=== PATIENT | female | born 2000 | race Caucasian/White ===

== ENCOUNTER 2019-01-29 12:48 | Outpatient (CLI) | payer BC, SELFPAY ==
[2019-01-29 13:09] LABS: Abs Immature Grans 0.02 k/cumm (0.0-0.09); Absolute Basophil Count 0.04 k/cumm (0.0-0.2); Absolute Lymphocyte Count 2.24 k/cumm (1.2-3.4); Absolute Monocyte Count 0.47 k/cumm (0.11-0.7); Absolute Neutrophil Count 4.68 k/cumm (1.2-6.7); Basophils % 0.5; Eosinophils % 3.9; HGB 12.3 g/dL (12.0-15.5); Immature Grans % 0.3; Lymphocytes % 28.9; Mean Corp. HGB Concentration 33.2 g/dL (32.0-36.0); Mean Corpuscular Volume 90.2 fL (80-95); Mean Platelet Volume 10.4 fL (8.0-11.0); Monocytes % 6.1; Neutrophils % 60.3; Platelet Count 238 x1000/uL (130-400); White Blood Cell Count 7.75 k/cumm (4.4-10.8)
[2019-01-29 14:29] LABS: ALT 20 U/L (12-78); AST 11 U/L (15-37); Albumin 4.2 g/dL (3.4-5.0); Alkaline Phosphatase 68 U/L (46-116); Anion Gap 9.5 mmol/L (3-11); BUN 12 mg/dL (7-18); Bilirubin, Total 0.5 mg/dL (0.2-1.0); CO2 27.5 mmol/L (21.0-32.0); CREATININE 0.73 mg/dL (0.55-1.02); Calcium 9.1 mg/dL (8.5-10.1); Chloride 104 mmol/L (98-107); Glucose 83 mg/dL (70-100); Potassium 4.8 mmol/L (3.5-5.1); Sodium 141 mmol/L (136-145); TSH (W/Ref FT4) 1.66 uIU/mL (0.52-4.13); Total Protein 7.6 g/dL (6.4-8.2)
[2019-01-31 12:01] LABS: IgA 138 mg/dL (85-499); Interpretation SEE COMMENTS; Tissue Transglutaminase IgA <1.2 U/mL (<4.0)
== END 2019-01-29 13:08 ==
PROVIDERS: PCP Pediatrics; Visit Provider Pediatrics
DX: R53.83 Other fatigue (principal)
CPT/HCPCS: 36415; 80053; 82784; 83516; 84443; 85025

== ENCOUNTER 2020-05-03 05:44 | Outpatient (REF) | payer BC, SELFPAY ==
[2020-05-06 06:55] LABS: Patient Race White; SARS-CoV-2 RNA Undetected (Undetected); SARS-CoV-2 Specimen Source Nasal
== END 2020-05-03 06:04 ==
LOC: NCHCN 05:44
PROVIDERS: PCP Nurse Practitioner Family; Visit Provider Nurse Practitioner Family
DX: Z11.59 Encounter for screening for other viral diseases (principal)
CPT/HCPCS: U0003

== ENCOUNTER 2021-01-26 18:08 | Outpatient (REF) | payer BC, SELFPAY ==
[2021-01-26 18:35] LABS: Abs Immature Grans 0.02 10^3/uL (0.0-0.06); Absolute Basophil Count 0.04 10^3/uL (0.0-0.2); Absolute Eosinophil Count 0.31 10^3/uL (0.0-0.7); Absolute Lymphocyte Count 2.73 10^3/uL (1.2-3.4); Absolute Neutrophil Count 4.39 10^3/uL (1.2-6.7); Basophils % 0.5; Eosinophils % 3.8; HCT 36.3 % (36.0-46.0); HGB 12.2 g/dL (11.2-15.7); Immature Grans % 0.2; Lymphocytes % 33.7; MCH 30.3 pg (27.0-33.0); MCHC 33.6 % (32.0-36.0); MCV 90.3 fL (80-95); MPV 10.9 fL (8.0-11.0); Monocytes % 7.4; Neutrophils % 54.4; Nucleated RBC 0 %; Platelet Count 243 10^3/uL (130-400); RBC 4.02 10^6/uL (3.93-5.22); RDW 11.7 % (11.7-14.6); RDW-SD 38.9 fL; WBC 8.09 10^3/uL (4.4-10.8)
[2021-01-26 18:57] LABS: ALT 21 U/L (14-59); AST 16 U/L (15-37); Albumin 4.4 g/dL (3.4-5.0); Alkaline Phosphatase 64 U/L (46-116); Anion Gap 8.3 mmol/L (3-11); BUN 13 mg/dL (7-18); Bilirubin, Total 0.3 mg/dL (0.2-1.0); CO2 26.7 mmol/L (21.0-32.0); CREATININE 0.8 mg/dL (0.55-1.02); Calcium 9.5 mg/dL (8.5-10.1); Chloride 102 mmol/L (98-107); FREE T4 0.98 ng/dL (0.76-1.46); Glucose 85 mg/dL (74-106); Potassium 3.9 mmol/L (3.5-5.1); Sodium 137 mmol/L (136-145); TSH 2.17 uIU/mL (0.36-3.74); Total Protein 8.3 g/dL (6.4-8.2)
[2021-01-27 17:44] LABS: Thyroglobulin Antibody <15 U/mL (<=60); Thyroperoxidase Antibody <28 U/mL (<=60)
[2021-01-31 12:58] LABS: IgA 146 mg/dL (85-499); Interpretation (See Note); Tissue Transglutaminase IgA <1.2 U/mL (<4.0)
[2021-02-07 14:48] LABS: Thyroid Stimulating Immunoglob <1.0 TSI index (<=1.3)
== END 2021-01-26 18:09 | disposition home or self-care (01) ==
LOC: LBN 18:08
PROVIDERS: PCP Pediatrics; Visit Provider Pediatrics
DX: R19.7 Diarrhea, unspecified; K52.9 Noninfective gastroenteritis and colitis, unspecified
CPT/HCPCS: 80053; 82784; 83516; 86376; 84439; 84443; 84445; 85025

== ENCOUNTER 2022-01-03 11:48 | Outpatient (REF) | payer BC, SELFPAY ==
--- NOTE | 2022-01-03 10:30 | PAPFT_PTH ---
PATIENT: Libertad Diaz LOC: [facility] U#:[id number] AGE/SX: 21/F ROOM: RE01/03/[address]: Destiny Deluna NP : 2000 BED: DIS: 01/03/2022 SPEC #: [id number] RECD: 01/03/22 12:51 STATUS: LEODAN REZaria #: [id number] ARELI: 01/03/22 10:[address]: Destiny Deluna NP DEPT: [facility] Cytology RECD BY: Alka Mccarty ENTERED: 01/03/22 12:51 SP TYPE: PAPFT OTHR DR: Pedro Pablo Chapman MD Tissues: 1 - CX/ENDOCX FOR PAP SMEARS Procedures: PAP THIN PREP/[facility] Screening Comments: [id number] (CHLAMYDIA/GC)
[2022-01-04 14:26] LABS: Chlamydia Result Negative (Negative); GC Result Negative (Negative)
== END 2022-01-03 11:49 | disposition home or self-care (01) ==
LOC: LBN 11:48
PROVIDERS: PCP Pediatrics; Visit Provider Nurse Practitioner Women's Health
DX: Z11.3 Encounter for screening for infections with a predominantly sexual mode of transmission (principal); Z12.4 Encounter for screening for malignant neoplasm of cervix
CPT/HCPCS: 87491; 87591; 88142

== ENCOUNTER 2025-05-18 08:31 | Outpatient (REF) | payer BC, SELFPAY ==
--- NOTE | 2025-05-18 08:20 | PAPFT_PTH ---
PATIENT: Libertad Diaz LOC: [facility] U#:[id number] AGE/SX: 24/F ROOM: RE05/18/[address]: Destiny Deluna NP : 2000 BED: DIS: 05/18/2025 SPEC #: [id number] RECD: 05/18/25 13:22 STATUS: LEODAN KOTHARI #: [id number] ARELI: 05/18/25 08:[address]: Destiny Deluna NP DEPT: [facility] Cytology RECD BY: Alka Mccarty ENTERED: 05/18/25 13:22 SP TYPE: PAPFT OTHR DR: Unknown,Unknown Tissues: 1 - CX/ENDOCX FOR PAP SMEARS Procedures: PAP THIN PREP/[facility] Screening Comments: [id number] (CHLAMYDIA/GC)
[2025-05-19 11:46] LABS: Chlamydia Result Negative (Negative); GC Result Negative (Negative)
== END 2025-05-18 08:32 | disposition home or self-care (01) ==
LOC: LBN 08:31
PROVIDERS: Visit Provider Nurse Practitioner Women's Health
DX: Z12.4 Encounter for screening for malignant neoplasm of cervix (principal)
CPT/HCPCS: 87491; 87591; 88142

== ENCOUNTER 2025-05-18 10:22 | Outpatient (CLI) | payer BC, SELFPAY ==
[2025-05-18 19:00] LABS: HIV-1/2 Ag & Ab Screen Negative (Negative)
[2025-05-18 19:01] LABS: Hepatitis C Ab w Rflx HCV PCR Negative (Negative)
[2025-05-20 21:18] LABS: Syphilis IgG w/Reflex Nonreactive (Nonreactive)
== END 2025-05-18 10:23 | disposition home or self-care (01) ==
LOC: LBO 10:23
PROVIDERS: Visit Provider Nurse Practitioner Women's Health
DX: Z11.3 Encounter for screening for infections with a predominantly sexual mode of transmission (principal)
CPT/HCPCS: 36415; 86803; 87389; 86780